=== PATIENT | female | born 1945 | race Caucasian/White ===

== ENCOUNTER 2019-04-29 09:53 | Day surgery (SDC) | payer MEDICARE, OTHER ==
[~2019-04-29] VITALS: Ht 152.4 cm; Wt 56.7 kg
[~2019-04-29 09:53] MED LIST: LIDOCAINE 2% INJ 100 MG/5 ML SDV (FOR ANES.) As Ordered ONE; LR 1,000 ML IV ONE; ONDANSETRON 4MG/2ML VIAL (J2405) As Ordered ONE; PROPOFOL 200 MG/20 ML VIAL As Ordered ONE; ROCURONIUM BROMIDE 50 MG/5 ML VIAL As Ordered ONE; SUGAMMADEX SODIUM 500 MG/5 ML VIAL (BRIDION) As Ordered ONE; fentaNYL 100 MCG/2 ML INJECTION (J3010) As Ordered ONE
[2019-04-29] MEDS ORDERED: CETACAINE SPRAY 5GM As Ordered ONE (10:19)
[2019-04-29] MEDS ORDERED: PROMETHAZINE INJ 25 MG/ML VIAL (J2550) IV PRN (11:45)
[2019-04-29] MEDS ORDERED: METOCLOPRAMIDE INJ 10MG/2ML VIAL (J2765) IV PRN (11:45)
[2019-04-29] MEDS ORDERED: LR 1,000 ML IV SCH (11:45)
[2019-04-29] MEDS ORDERED: fentaNYL 100 MCG/2 ML INJECTION (J3010) IV PRN (11:45)
--- NOTE | 2019-04-29 12:15 | RO ---
DATE OF PROCEDURE: 04/29/2019 PREOPERATIVE DIAGNOSES: Left upper lobe mass. Left paratracheal mass. Abnormal chest CT. POSTOPERATIVE DIAGNOSES: Left upper lobe mass. Left paratracheal mass. Abnormal chest CT. FINDINGS: Obstructed anterior segment of the left upper lobe with abnormal mucosa of the left upper lobe take off. PROCEDURE: Bronchoscopy with endobronchial ultrasound. SURGEON: Dr. Kodi Lee. PLANT ATTENDANT OR ASSISTANT OPERATOR: None. ANESTHESIA: General. ESTIMATED BLOOD LOSS: 5-10 mL. SPECIMENS OBTAINED: 1. Fine needle aspiration (FNA) left paratracheal mass. 2. Perceptive brushes. DESCRIPTION OF PROCEDURE: After informed consent was reviewed with the patient in the preoperative area, she was brought back to OR #1. General anesthesia was initiated. An 8.5 endotracheal tube was inserted. The case was then handed over to me. Time-out was performed with two patient identifiers identifying correct site, correct procedure. I then anesthetized the airway with Cetacaine spray 1T 190 bronchoscope was then inserted into the endotracheal tube. There was minimal right mainstem intubation. The endotracheal tube was retracted. The karyna was fairly sharp right and left mainstem bronchus had some pitting and banding. RB 1 through 10 was normal without endobronchial lesions but there was a significant amount of pitting. On inspection of left upper lobe at the take off, there was irregular mucosa. Picture was taken. There was significant edema and protrusion of the medial bronchial wall. This area was hypervascular and erythematous. The anterior segment of the left upper lobe was totally obstructed. There was patency of the apical posterior segment of the left upper lobe. The lingula was patent without endobronchial lesions and the left lower lobe was without any abnormalities. LB 6 through 10 was without abnormality. I then inserted the endobronchial ultrasound into the left upper lobe and performed FNA to the paratracheal mass. When viewing the area, it did appear that there was an abnormality adjacent to the pericardium. It did appear that there was pericardial fluid. Samples of the mass were taken. On-site cytology suggested adequate sampling. After adequate sampling was obtained, endobronchial ultrasound was removed. Airways were suctioned. The patient is in recovery. Postprocedure chest x-ray still pending. [facility]
[2019-04-29 13:00] VITALS: BP 133/65
--- NOTE | 2019-04-29 13:27 | REP ---
PORTABLE AP CHEST, ONE VIEW: REASON FOR EXAM: Postoperative/postanesthesia care unit. COMPARISON: None. FINDINGS: The patient is rotated, obscuring the mediastinum. Heart size is normal. There is no pulmonary consolidation or pneumothorax. The costophrenic angles are sharp. IMPRESSION: No acute cardiopulmonary process. Electronically Signed by Seema Treviño MD 04/29/2019 06:14 P
== END 2019-04-29 13:00 | disposition home or self-care (01) ==
LOC: M SDC 09:53
PROVIDERS: ATTEND Internal Medicine Pulmonary Disease
DX: C34.12 Malignant neoplasm of upper lobe, left bronchus or lung (principal); M50.90 Cervical disc disorder, unspecified, unspecified cervical region; I10 Essential (primary) hypertension; E03.9 Hypothyroidism, unspecified; E78.5 Hyperlipidemia, unspecified; J44.9 Chronic obstructive pulmonary disease, unspecified; K21.9 Gastro-esophageal reflux disease without esophagitis; Z87.891 Personal history of nicotine dependence; Z88.2 Allergy status to sulfonamides; Z88.0 Allergy status to penicillin
CPT/HCPCS: 31623; 31652; 71045; 88173; 88305; 88313; 88341; 88342; J2405; J3010